=== PATIENT | female | born 1955 | race Two or more races ===

== ENCOUNTER 2020-03-07 05:51 | Day surgery (SDC) | payer OTHER ==
[~2020-03-07 05:51] MED LIST: AMLOD; AMLODIPINE PO; ASPIRIN PO; COZAAR100 MG PO; JANUVIA100 MG PO; PROAIR HFA8.5 GM IH
[2020-03-07] MEDS ORDERED: PERCOCET 5-3251 EACH PO (09:24)
[2020-03-07] MEDS ORDERED: COLACE100 MG PO (09:24)
== END 2020-03-07 17:35 | disposition home or self-care (01) ==
LOC: CIR.AMB 05:51 → ADM 08:15 → CIR.AMB 17:35
DX: D12.8 Benign neoplasm of rectum (principal)
CPT/HCPCS: 0184T; 64430